=== PATIENT | female | born 1935 | race Caucasian/White ===

== ENCOUNTER 2018-08-16 09:40 | Day surgery (SDC) | payer MEDICARE, OTHER ==
[~2018-08-16] VITALS: Ht 165.1 cm; Wt 92.2 kg
[~2018-08-16 09:40] MED LIST: AMLO5TAB6 PO; ASPI81TA85 PO; ATOR1TAB19 PO; FERR325T3 PO; INSUDET SC; INSUH10VL SC; LR 1,000 ML IV ONE; OCUVTAB4 PO
[2018-08-16 10:16] LABS: HEMATOCRIT 40.4 % (36.0-47.0); HEMOGLOBIN 12.6 g/dl (12.0-15.5); MEAN CORPUSCULAR HEMOGLOBIN 28.7 pg (27.0-33.0); MEAN CORPUSCULAR HGB CONC 31.2 g/dl (32.0-36.5); PLATELET COUNT, AUTOMATED 176 10^3/uL (150-450); RED BLOOD COUNT 4.39 10^6/uL (4.00-5.40)
[2018-08-16 10:29] LABS: CREATININE FOR GFR 1.74 MG/DL (0.55-1.30); GLOMERULAR FILTRATION RATE 29.7 (>32); POTASSIUM SERUM 4.8 MEQ/L (3.5-5.1)
[2018-08-16] MEDS ORDERED: BUPIVACAINE HCL 0.25% 30 ML VIAL As Ordered ONE (13:51)
[2018-08-16] MEDS ORDERED: fentaNYL 250 MCG/5 ML INJECTION (J3010) As Ordered ONE (15:18)
[2018-08-16] MEDS ORDERED: dexameTHASONE 4 MG/ML 1ML VIAL (J1100) As Ordered ONE (15:18)
[2018-08-16] MEDS ORDERED: LIDOCAINE 2% INJ 100 MG/5 ML SDV (FOR ANES.) As Ordered ONE ×2 (15:18→18:56)
[2018-08-16] MEDS ORDERED: ROCURONIUM BROMIDE 50 MG/5 ML VIAL As Ordered ONE ×2 (15:18→16:49)
[2018-08-16] MEDS ORDERED: PROPOFOL 200 MG/20 ML VIAL As Ordered ONE (15:18)
[2018-08-16] MEDS ORDERED: METOCLOPRAMIDE INJ 10MG/2ML VIAL (J2765) As Ordered ONE (15:18)
[2018-08-16] MEDS ORDERED: ONDANSETRON 4MG/2ML VIAL (J2405) As Ordered ONE ×2 (15:18→20:19)
[2018-08-16] MEDS ORDERED: ETOMIDATE INJ 20MG/10ML VIAL As Ordered ONE (15:18)
[2018-08-16] MEDS ORDERED: SUGAMMADEX SODIUM 500 MG/5 ML VIAL (BRIDION) As Ordered ONE (15:18)
[2018-08-16] MEDS ORDERED: hydrALAZINE INJ 20 MG/ML VIAL As Ordered ONE (15:34)
[2018-08-16] MEDS ORDERED: fentaNYL 100 MCG/2 ML INJECTION (J3010) As Ordered ONE ×2 (16:50→20:19)
[2018-08-16] MEDS ORDERED: CONRAY-60 60% 50ML VIAL (Q9961) As Ordered ONE (17:40)
[2018-08-16] MEDS ORDERED: HYDROmorphone HCL 2 MG/ML 1ML VIAL (J1170) As Ordered ONE (18:23)
[2018-08-16] MEDS ORDERED: DESFLURANE 240 ML INHALANT As Ordered ONE (18:32)
[2018-08-16] MEDS ORDERED: NORCO, ANEXSIA 5/325MG TABLET (HYDROcodone/ACETAMINOPHEN) PO PRN (20:15)
[2018-08-16] MEDS ORDERED: KETOROLAC 30 MG/ML VIAL (J1885) IV PRN (20:15)
[2018-08-16] MEDS ORDERED: MORPHINE 4 MG/ML 1ML VIAL/SYRINGE (J2270) IV PRN (20:15)
[2018-08-16] MEDS ORDERED: ONDANSETRON 4MG/2ML VIAL (J2405) IV PRN ×2 (20:15→20:45)
[2018-08-16] MEDS ORDERED: ACETAMINOPHEN TAB 650MG DOSE (2X325MG) PO PRN (20:15)
[2018-08-16] MEDS: fentaNYL 100 MCG/2 ML INJECTION (J3010) IV PRN ×4 (20:20→21:25)
[2018-08-16] MEDS ORDERED: LR 1,000 ML IV SCH (20:45)
[2018-08-16] MEDS ORDERED: oxyCODONE 5MG TAB PO PRN (20:45)
[2018-08-16 20:51] LABS: BASO % 0.1 % (0.0-1.0); HEMATOCRIT 37.9 % (36.0-47.0); HEMOGLOBIN 11.9 g/dl (12.0-15.5); LYMPH % 7.1 % (24.0-44.0); MEAN CORPUSCULAR HEMOGLOBIN 29.9 pg (27.0-33.0); MEAN CORPUSCULAR HGB CONC 31.4 g/dl (32.0-36.5); MEAN CORPUSCULAR VOLUME 95.2 fl (80.0-96.0); MONO # 0.5 10^3/uL (0.0-0.8); MONO % 3.2 % (0.0-5.0); NEUTROPHILS # 12.6 10^3/uL (1.8-7.7); PLATELET COUNT, AUTOMATED 161 10^3/uL (150-450); RED BLOOD COUNT 3.98 10^6/uL (4.00-5.40); WHITE BLOOD COUNT 14.2 10^3/uL (4.0-10.0)
[2018-08-16] MEDS ORDERED: HumaLOG INSULIN (NovoLOG) PER UNIT SC ONE (21:00)
[2018-08-16] MEDS ORDERED: HumaLOG INSULIN (NovoLOG) PER UNIT SC SCH (21:00)
[2018-08-16] MEDS ORDERED: AMPICILLIN SOD/SULBACTAM SOD 3 GM in D5W MINI-BAG PLUS 100 ML IV SCH (21:00)
[2018-08-16 21:11] LABS: ALBUMIN 3.4 GM/DL (3.2-5.2); BILIRUBIN,TOTAL 0.5 MG/DL (0.2-1.0); CALCIUM LEVEL 8.2 MG/DL (8.8-10.2); CREATININE FOR GFR 1.76 MG/DL (0.55-1.30); GLOMERULAR FILTRATION RATE 29.3 (>32); POTASSIUM SERUM 4.9 MEQ/L (3.5-5.1); TOTAL PROTEIN 6.6 GM/DL (6.4-8.2)
[2018-08-16] MEDS: MORPHINE 10 MG/ML 1ML VIAL (J2270) IV PRN ×3 (22:00→22:10)
[2018-08-16 22:40] VITALS: BP 141/68
[2018-08-16] MEDS: AMPICILLIN SOD/SULBACTAM SOD 3 GM in D5W MINI-BAG PLUS 100 ML IV SCH (23:03)
[2018-08-16] MEDS: LR 1,000 ML IV SCH (23:03)
[2018-08-16 23:10] VITALS: BP 156/66
[2018-08-16 23:40] VITALS: BP 150/60
[2018-08-17] VITALS (8 sets, daily range): BP systolic 133–156; BP diastolic 50–74
[2018-08-17] MEDS: LR 1,000 ML IV SCH (04:17)
[2018-08-17] MEDS: AMPICILLIN SOD/SULBACTAM SOD 3 GM in D5W MINI-BAG PLUS 100 ML IV SCH ×2 (04:17→09:33)
[2018-08-17] MEDS: HumaLOG INSULIN (NovoLOG) PER UNIT SC SCH ×2 (07:57→11:56)
--- NOTE | 2018-08-17 08:22 | REP ---
Intraoperative cholangiogram: A series of four intraoperative fluoroscopic views are performed. The common biliary duct is opacified. There is a round filling defect in the proximal common biliary duct. Fluoroscopic exposure time is 3 seconds. Fluoroscopic images are performed with last image hold technology and require no additional radiation. Electronically Signed by John Pepper MD 08/17/2018 08:13 A
[2018-08-17] MEDS ORDERED: ATORVASTATIN 10 MG TAB PO SCH (09:00)
[2018-08-17] MEDS ORDERED: amLODIPine 5 MG TAB PO SCH (09:00)
--- NOTE | 2018-08-18 15:03 | IPN ---
DATE OF SERVICE: 08/17/2018 HISTORY: The patient is now postoperative day #1 from a robotic-assisted laparoscopic cholecystectomy. She had an extremely difficult procedure with a markedly scarred and shrunken gallbladder with attachment of the overlying duodenum and a short or nonexistent cystic duct, such that the gallbladder arose right off the side of the common duct requiring closure of the lateral aspect of the common duct. She has done very well following surgery. She has tolerated some clear liquids and been up out of bed and voided. The nurse has expressed some concern that she appears slightly unsteady on her feet. VITAL SIGNS: Show that she has been afebrile since surgery. Her pulse is in the 80s to low 90s. Blood pressure has been good. Oxygen saturation is fine. INTAKE AND OUTPUT: Show that yesterday she had 2850 in. She has an excellent urine output recorded this morning. Her drain placed at the time of surgery had shown only 10 mL yesterday and 50 this morning. There is no bile staining of fluid. PHYSICAL EXAMINATION: The patient is sitting up in a chair, looking quite comfortable. She is alert and appears generally oriented. Heart examination shows a regular rhythm. The lungs are clear. The abdomen is obese but soft and without undue tenderness. Her dressings are dry. The drain has a small amount of serosanguineous fluid within with no bile whatsoever. LABORATORY STUDIES: From the recovery room had shown no elevation of her Liver function tests (LFTs), and her amylase and lipase were normal. In the absence of any worsened pain today, I elected not to repeat her laboratories. Her fingerstick blood sugars have ranged from 214-421. IMPRESSION: The patient appears overall to be doing quite well from her surgery. There is no sign of bile leakage through her drain, and that would be the chief concern. Her blood sugars are out of control, but she did not receive her long-acting insulin last night as she remained nothing by mouth. PLAN: Her diet will be advanced to a consistent-carbohydrate diet. We will obtain a home safety evaluation from physical therapy to ensure that she is adequately steady. If she passes the home safety evaluation, I anticipate she could be discharged today. I will leave her drain in place for at least several days to ensure that her bile duct has healed before this is removed. If she does go home later in the day, I will have her follow up on Monday,08/20/2018. If she remains in the hospital, we can monitor this directly.
--- NOTE | 2018-08-18 22:36 | RO ---
DATE OF PROCEDURE: 08/16/2018 PREOPERATIVE DIAGNOSIS: Symptomatic gallstones. POSTOPERATIVE DIAGNOSIS: Cholelithiasis with acute and chronic cholecystitis with extensive scarring. PROCEDURE PERFORMED: Robotic-assisted laparoscopic cholecystectomy with intraoperative cholangiogram, oversewing of the cystic duct and oversewing of a duodenotomy SURGEON: Dr. Riley FARM RANCHER: ANESTHESIA: General. INDICATIONS FOR PROCEDURE: The patient is a 82-year-old woman who had suffered an attack of severe upper abdominal pain several months ago that was diagnosed as biliary in etiology. Her ultrasound had shown cholelithiasis. She was scheduled for a robotic-assisted laparoscopic cholecystectomy. OPERATIVE PROCEDURE: The patient was brought to the operating room and placed on the table in a supine position. The patient's abdomen was prepped and draped in a sterile fashion. Thromboembolic compression stockings (TEDS) and sequentials were utilized. 0.25% Marcaine was utilized as needed. Initially, a short incision was made in the left upper quadrant, and a Veress needle was inserted. However, there were elevated pressures on attempted insufflation and a second incision was made more medial, still slightly to the left of the midline but about at the level of the umbilicus. Again, local anesthesia was injected and a Veress needle was inserted. There was excellent hanging drop test and the abdomen was insufflated without difficulty. The 8 mm Intuitive surgical Visiport was inserted through the abdominal wall without difficulty. Initial inspection with the laparoscope showed some insufflation into the tissues of the left upper quadrant beneath the omentum. There was no evidence of any bleeding or any intestinal leakage. An 8-mm port was placed in the left upper quadrant through the first incision. Two additional ports were then placed extending in an oblique line into the right lower quadrant. The robot was then docked from the left side. The camera port was docked initially and targeting took place on the area of the gallbladder. The additional arms were then attached. A hook was placed in the left upper quadrant port and cauterizing grasper and a grasping retractor were placed in the right lower quadrant. I then moved to the control console and proceeded with the robotic portion of the procedure. The liver appeared normal. There were significant strong adhesions of the omentum up over the undersurface of the right lobe of the liver. A very small portion of what appeared to be the fundus of the gallbladder was identified. Dissection began by dividing some of these adhesions to the undersurface of the liver and the area of the gallbladder. The duodenum looped up to this area and was densely adherent overlying the gallbladder itself. Very careful dissection of the duodenum away from the gallbladder was performed. There was marked scarring in this area. Slow and careful dissection was performed. As the duodenum was peeled away, it was clear that there was marked erosion and destruction of the wall of the gallbladder with fragments of stone protruding through eroded portions of the gallbladder. It was possible to grasp a portion of the gallbladder. The gallbladder itself appeared destroyed by inflammation. Dissection continued and fragments of the gallbladder wall were removed and set aside for later removal. There was a large fragmented stone within the gallbladder and this was also removed. It was difficult to assess the size of the gallbladder. Dissection proceeded inferiorly, dissecting out what was initially felt to represent the cystic duct and the cholecystic artery. However, as dissection proceeded, this appeared more and more consistent with the common bile duct, indicating that the gallbladder itself was extremely shrunken and scarred. I returned to removing the portions of stone from within the gallbladder to try to gauge the size of the residual body and neck region of the gallbladder. This was carefully dissected from the gallbladder bed. A large blood vessel was identified coursing up the medial aspect of this tissue. As some stone fragments were removed from this structure, there was onset of some bile leakage. There appeared to be either an extremely short cystic duct or even no cystic duct with the gallbladder arising directly off the side of the common bile duct. This fragment of tissue was dissected from the tissues to the lateral aspect to try to better expose this area. Some bile leakage continued from this area. I obtained a portion of an 8-Cambodian red rubber Gerardo catheter and this would easily extend distally but I could not find a way to pass this into the opening and proximal. I therefore excised the small fragment of loose tissue and closed the upper portion of this tissue, leaving a small gap inferiorly. The robot was then undocked and I returned to the bedside and using standard laparoscopic instruments inserted a balloon cholangiogram catheter into the small opening that was left and obtained, intraoperative cholangiograms with injection of 30% Conray using fluoroscopy. It was clear that the patient's common bile duct was intact with filling of the intrahepatic radicals and flow distally into the duodenum without any definite filling defects. This all seemed to be consistent with an extremely short or even nonexistent cystic duct with the bile coming from an opening at the lateral aspect of the common bile duct to gallbladder junction. I had placed a 5-mm port in the right upper quadrant for insertion of the cholangiogram catheter. The cholangiogram catheter was removed, and I then returned to the robotic console and the robot was I then proceeded with suturing the remaining defect along the lateral aspect of the common bile duct using interrupted simple sutures of 3-0 Vicryl. The area was then copiously irrigated and there was no evidence of any further leakage of bile. The area was inspected for hemostasis, which was excellent, and the course of dissection identified what appeared to be a small at least seromuscular defect in the duodenum where this had been adherent onto the gallbladder wall. It may be that this actually penetrated the mucosa. I elected to oversew this area and so using the robotic suturing several sutures of 3-0 Vicryl were placed to completely oversew this area securely. With further irrigation, again there was no evidence of any bile leakage. A 19-Cambodian Cali drain was inserted into the abdomen and directed out through the most lateral right lower quadrant trocar site. This was placed across the subhepatic space directly over the area of the closure of common bile duct. The patient was returned to a flat position, and the abdomen was deflated and the trocars were all removed. The drain was sutured to the skin with 2-0 silk and this was dressed with a chlorhexidine gluconate OpSite. The four other trocar sites were closed with buried 5-0 Vicryl and Steri-Strips. The patient tolerated the procedure well without apparent complications. I would note that the fragments of the gallbladder and stone were placed within a 5 mm specimen retrieval port. This was recovered through one of the trocar sites prior to closure. The fragments were quite small once they were inspected in the open and these were all sent as portions of gallbladder and stones. Clearly, the patient had marked contracted and scarred gallbladder. She was awakened in the operating room, extubated and moved to the recovery room in stable condition.
== END 2018-08-17 16:43 | disposition home or self-care (01) ==
LOC: M SDC 09:40 → M MSPAV 22:32 → M SDC 08-17 16:43
PROVIDERS: ATTEND Surgery
DX: K80.10 Calculus of gallbladder with chronic cholecystitis without obstruction (principal); I25.10 Atherosclerotic heart disease of native coronary artery without angina pectoris; I10 Essential (primary) hypertension; E11.9 Type 2 diabetes mellitus without complications; E78.5 Hyperlipidemia, unspecified; Z79.82 Long term (current) use of aspirin; Z79.4 Long term (current) use of insulin; Z79.899 Other long term (current) drug therapy
CPT/HCPCS: 36415; 47563; 74300; 80053; 82150; 83690; 85025; 85027; 88304; 96361; 96365; 96366; 97161; J1100; J1170; J2270; J2405; J2765; J3010; Q9961

== ENCOUNTER → 2022-03-03 | Outpatient (REF) | payer MEDICARE, BC ==
[~2022-03-03] MED LIST changes: +AMLO1TAB24 PO; -AMLO5TAB6 PO; -ASPI81TA85 PO; +ASPI81TA86 PO; -LR 1,000 ML IV ONE
== END ==
LOC: M LAB REF 16:54
PROVIDERS: ATTEND Internal Medicine Nephrology
DX: N18.4 Chronic kidney disease, stage 4 (severe) (principal); E11.22 Type 2 diabetes mellitus with diabetic chronic kidney disease

== ENCOUNTER → 2023-09-27 | Outpatient (CLI) | payer MEDICARE | LOC: M WHC 12:03 | PROVIDERS: ATTEND Nurse Practitioner Family | DX: Z12.31 Encounter for screening mammogram for malignant neoplasm of breast (principal); R92.313 Mammographic fatty tissue density, bilateral breasts ==